=== PATIENT | male | born 1990 | race Hispanic/Latino ===

== ENCOUNTER 2021-12-17 11:19 | Outpatient (CLI) | payer MEDICARE, MEDICAID | END 2021-12-17 11:20 | disposition home or self-care (01) | LOC: MERGE 11:19 → CSHWCC 11:19 | PROVIDERS: ATTEND Nurse Practitioner Family | DX: T81.89XD Other complications of procedures, not elsewhere classified, subsequent encounter (principal); Z93.2 Ileostomy status ==

== ENCOUNTER 2021-12-20 08:20 | Outpatient (CLI) | payer OTHER, MEDICAID, MEDICARE | END 2021-12-20 08:21 | disposition home or self-care (01) | LOC: CSHWCC 08:20 | PROVIDERS: ATTEND Nurse Practitioner Family | DX: T81.89XD Other complications of procedures, not elsewhere classified, subsequent encounter (principal); Z93.2 Ileostomy status | CPT/HCPCS: 97605 ==

== ENCOUNTER 2021-12-24 12:59 | Outpatient (CLI) | payer MEDICARE, MEDICAID | END 2021-12-24 13:00 | disposition home or self-care (01) | LOC: CSHWCC 12:59 | PROVIDERS: ATTEND Nurse Practitioner Family | DX: T81.89XD Other complications of procedures, not elsewhere classified, subsequent encounter (principal); Z93.2 Ileostomy status ==

== ENCOUNTER 2024-03-28 13:04 | Inpatient (IN) | payer OTHER ==
[~2024-03-28 13:04] MED LIST: Iopamidol 370 76% 100 ML VIAL ONE
[2024-03-28 13:50] LABS: #Basophils 0.05 10x3/uL (0.0-0.2); #Monocytes 1.01 10x3/uL (0.0-1.1); #Neutrophils 10.72 10x3/uL (1.5-8.4); %Basophils 0.4 % (0.0-2.0); %Eosinophils 1.6 % (0.0-6.0); %Lymphocytes 5.1 % (18.0-47.0); %Neutrophils 84.5 % (40.0-75.0); Hematocrit 42.6 % (38.8-50.0); Hemoglobin 14.5 g/dL (13.5-17.5); Mean Corpuscular Hemoglobin 28.3 pg (27.0-33.0); Mean Corpuscular Volume 83.2 fL (81.2-95.1); Platelet Count 257 10x3/uL (150-450); RBC Distribution Width 15.3 % (11.5-14.5); Red Blood Cell (RBC) Count 5.12 10x6/uL (4.32-5.72); White Blood Cell (WBC) Count 12.7 10x3/uL (3.5-10.5)
[2024-03-28] MEDS ORDERED: cefTRIAXone (ROCEPHIN) 2 GM VIAL ONE (14:00)
[2024-03-28] MEDS ORDERED: Azithromycin 500 MG VIAL ONE (14:00)
[2024-03-28] MEDS ORDERED: Magnesium 2 GM/50 ML BAG (IN WATER) ONE (14:00)
[2024-03-28] MEDS ORDERED: Dexamethasone 10 MG/ML VIAL ONE (14:00)
[2024-03-28] MEDS ORDERED: Albuterol 2.5 MG (3 mL) NEB ONE (14:03)
[2024-03-28] MEDS ORDERED: Ipratropium/Albuterol 3 ML NEB ONE (14:04)
[2024-03-28 14:05] LABS: ALT (SGPT) 50 U/L (8-55); AST (SGOT) 28 U/L (5-34); Albumin 3.5 g/dL (3.5-5.0); Alkaline Phosphatase 111 U/L (40-110); Anion Gap 15 mmol/L (10-20); BUN (Urea Nitrogen) 7 mg/dL (8.9-20.6); Bilirubin, Total 0.6 mg/dL (0.2-1.2); CK (CPK) 50 U/L (30-200); Calc. Creatinine Clearance 0 mL/min (70-130); Calcium 9.2 mg/dL (7.8-10.44); Carbon Dioxide 20 mmol/L (22-29); Chloride 107 mmol/L (98-107); Estimated GFR 123; Globulin 3.3 g/dL (2.4-3.5); Glucose 97 mg/dL (70-105); Lipase 11 U/L (8-78); Potassium 3.7 mmol/L (3.5-5.1); Protein, Total 6.8 g/dL (6.0-8.3); Sodium 138 mmol/L (136-145)
[2024-03-28 14:06] LABS: Acetaminophen Less than 10 mcg/mL (10.0-30.0); Alcohol Less than 10.0 mg/dL (Less than 10); Salicylate Less than 8.0 mg/dL (15.0-30.0)
[2024-03-28 14:08] LABS: Troponin I 0.048 ng/mL (< 0.028)
[2024-03-28 15:44] LABS: Influenza A by NAA Not Detected (NotDetected); Influenza B by NAA Not Detected (NotDetected); SARS-CoV-2 NAA Rapid Test Not Detected (NotDetected)
[2024-03-28] MEDS ORDERED: Aspirin Chewable 81 MG TAB ONE (15:54)
[2024-03-28 16:43] VITALS: BMI 46.8
[2024-03-28] MEDS ORDERED: Ondansetron PF 4 MG/2 ML Vial IVP PRN (16:56)
[2024-03-28] MEDS: Azithromycin 500 MG in Sodium Chloride 0.9% 250 ML 250 ML IVPB SCH (17:57)
[2024-03-28] MEDS: cefTRIAXone\\ROCEPHIN 1 GM in Sodium Chloride 0.9% 100 ML IVPB SCH (17:58)
[2024-03-28] MEDS: traMADol HCl 50 MG TAB PO PRN (18:02)
[2024-03-28] MEDS: Guaifenesin DM 100-10/5 ML UDCUP PO PRN (21:16)
[2024-03-29 03:57] LABS: #Basophils 0.02 10x3/uL (0.0-0.2); #Monocytes 0.88 10x3/uL (0.0-1.1); #Neutrophils 8.47 10x3/uL (1.5-8.4); %Basophils 0.2 % (0.0-2.0); %Lymphocytes 7.3 % (18.0-47.0); %Monocytes 8.7 % (0.0-10.0); %Neutrophils 83.4 % (40.0-75.0); Hemoglobin 13.2 g/dL (13.5-17.5); Mean Corpuscular Volume 84.9 fL (81.2-95.1); Mean Platelet Volume 10.8 fL (7.4-10.4); Platelet Count 275 10x3/uL (150-450); RBC Distribution Width 15.3 % (11.5-14.5); Red Blood Cell (RBC) Count 4.71 10x6/uL (4.32-5.72); White Blood Cell (WBC) Count 10.2 10x3/uL (3.5-10.5)
[2024-03-29 03:59] LABS: Anion Gap 14 mmol/L (10-20); BUN (Urea Nitrogen) 9 mg/dL (8.9-20.6); Calc. Creatinine Clearance 316 mL/min (70-130); Calcium 9.1 mg/dL (7.8-10.44); Carbon Dioxide 21 mmol/L (22-29); Chloride 106 mmol/L (98-107); Estimated GFR 124; Glucose 159 mg/dL (70-105); Potassium 3.6 mmol/L (3.5-5.1); Sodium 137 mmol/L (136-145)
[2024-03-29] MEDS: Acetaminophen 325 MG TAB PO PRN (04:25)
[2024-03-29] MEDS: Enoxaparin 40 MG (0.4 mL) SYRINGE SC SCH (09:06)
[2024-03-29 12:02] VITALS: BP 125/68; TEMP 98.2
== END 2024-03-29 11:50 | disposition home or self-care (01) | DRG 871 ==
LOC: CSHERS 13:04 → CSHTELE 16:11
PROVIDERS: ADMIT Emergency Medicine; ATTEND Internal Medicine
DX: A41.9 Sepsis, unspecified organism (principal); J18.9 Pneumonia, unspecified organism; F41.9 Anxiety disorder, unspecified; F32.A Depression, unspecified; Z98.890 Other specified postprocedural states; Z90.89 Acquired absence of other organs; Z90.49 Acquired absence of other specified parts of digestive tract
CPT/HCPCS: 36415; 71045; 71275; 80048; 80053; 80307; 82550; 83605; 83690; 84443; 84484; 85025; 87040; 93005; 96374; 96375; J0456; J0696; J1100; J1650; J3475; J7611; J7620; Q9967

== ENCOUNTER 2024-10-04 19:00 | Outpatient (CLI) | payer OTHER, MEDICAID | END 2024-10-04 19:01 | disposition home or self-care (01) | LOC: CSHSLEEP 19:00 | PROVIDERS: ATTEND Family Medicine | DX: G47.33 Obstructive sleep apnea (adult) (pediatric) (principal); R53.83 Other fatigue; R51.9 Headache, unspecified; F32.A Depression, unspecified; F41.9 Anxiety disorder, unspecified; E66.9 Obesity, unspecified; Z68.42 Body mass index [BMI] 45.0-49.9, adult; G47.00 Insomnia, unspecified; G47.61 Periodic limb movement disorder | CPT/HCPCS: 95811 ==

== ENCOUNTER 2025-07-05 18:50 | Emergency (ER) | payer OTHER, MEDICAID | END 2025-07-05 19:40 | disposition left against medical advice (07) | LOC: CSHERS 18:50 | DX: Z53.21 Procedure and treatment not carried out due to patient leaving prior to being seen by health care provider (principal) | CPT/HCPCS: 93005 ==